=== PATIENT | female | born 1995 | race Caucasian/White ===

== ENCOUNTER 2017-05-10 11:43 | Emergency (ER) | payer OTHER ==
[~2017-05-10] VITALS: Ht 157.5 cm; Wt 81.8 kg
[~2017-05-10 11:43] MED LIST: IBU800 M1 PO; NORCO 325 MG-51 TAB PO; PEPCID 20MG TAB20 MG PO; PRENATAL1 TA3 PO
[2017-05-10 12:21] LABS: BASO % 0.3 % (0.0-2.0); EOS # 0.1 (0.0-0.7); EOS % 0.6 % (0-4.0); GRAN # 5.5 (1.4-6.5); GRAN % 69.3 % (42.2-75.2); HEMOGLOBIN 12.1 g/dl (12.5-16.0); LYMPH # 1.5 (1.2-3.4); LYMPH % 18.5 % (20.0-51.0); MEAN CELL VOLUME 93 fl (80.0-100.0); MEAN CORPUSCULAR HEMOGLOBIN 32 pg (27.0-31.0); MEAN CORPUSCULAR HGB CONC 34 g/dl (33.0-37.0); MEAN PLATELET VOLUME 9.8 fl (7.4-10.4); MONO # 0.8 (0.1-0.6); MONO % 10.4 % (1.7-9.3); PLATELET COUNT 215 K/mm3 (130-400); RED BLOOD COUNT 3.79 M/mm3 (4.10-5.30); REDCELL DISTRIBUTION WIDTH-CV 12.3 % (11.5-14.5); WHITE BLOOD COUNT 7.9 K/mm3 (4.8-10.8)
[2017-05-10 12:28] LABS: HEMATOCRIT 35.3 % (37.0-47.0)
[2017-05-10 12:32] LABS: ADJUSTED CALCIUM 9.1 mg/dL (8.4-10.2); ALANINE AMINOTRANSFERASE 19 U/L (9-52); ALBUMIN 3.7 gm/dL (3.5-5.0); ALKALINE PHOSPHATASE 116 U/L (50-136); ANION GAP 12 mmol/L (7-16); BILIRUBIN,TOTAL 0.5 mg/dL (0.0-1.0); BLOOD UREA NITROGEN 9 mg/dL (7-17); CALCIUM 8.9 mg/dL (8.4-10.2); CARBON DIOXIDE 19 mmol/L (22-30); CHLORIDE 104 mmol/L (98-107); CREATININE, serum 0.42 mg/dL (0.52-1.25); GLUCOSE 79 mg/dL (74-106); POTASSIUM 4.1 mmol/L (3.4-5.0); SODIUM 136 mmol/L (137-145); TOTAL PROTEIN 7.1 gm/dL (6.4-8.2)
[2017-05-10 12:43] LABS: B-TYPE NATRIURETIC PEPTIDE 22 pg/mL (0-125)
[2017-05-10 12:48] LABS: TROPONIN-I < 0.012 ng/mL (0.000-0.034)
[2017-05-10] MEDS ORDERED: OMNICEF 300MG300 MG PO (14:46)
[2017-05-10 15:02] VITALS: TEMP 98.3
[2017-05-10 16:16] VITALS: BP 115/73; PULSE 99
== END 2017-05-10 16:16 | disposition home or self-care (01) ==
LOC: COL.ER 11:43
PROVIDERS: Emergency Medicine
DX: O99.513 Diseases of the respiratory system complicating pregnancy, third trimester (principal); J18.1 Lobar pneumonia, unspecified organism; Z3A.28 28 weeks gestation of pregnancy
CPT/HCPCS: J0696; J7030; Q9967

== ENCOUNTER 2017-05-13 12:18 | Emergency (ER) | payer OTHER ==
[~2017-05-13] VITALS: Ht 157.5 cm; Wt 81.8 kg
[~2017-05-13 12:18] MED LIST changes: +OMNICEF 300MG300 MG PO
[2017-05-13 12:55] LABS: HEMOGLOBIN 12.2 g/dl (12.5-16.0); MEAN CELL VOLUME 92 fl (80.0-100.0); MEAN CORPUSCULAR HEMOGLOBIN 32 pg (27.0-31.0); MEAN CORPUSCULAR HGB CONC 35 g/dl (33.0-37.0); MEAN PLATELET VOLUME 9.9 fl (7.4-10.4); PLATELET COUNT 230 K/mm3 (130-400); WHITE BLOOD COUNT 8.2 K/mm3 (4.8-10.8)
[2017-05-13 12:56] LABS: HEMATOCRIT 34.9 % (37.0-47.0)
[2017-05-13 12:57] LABS: ADD PATHOLOGY DIFF REVIEW NO
[2017-05-13 13:01] LABS: PH 5 (5-8); URINE APPEARANCE Hazy; URINE BACTERIA None Seen /hpf; URINE BILIRUBIN Negative (NEGATIVE); URINE BLOOD Negative (NEGATIVE); URINE COLOR Amber; URINE GLUCOSE 1+ (NEGATIVE); URINE KETONE Negative (NEGATIVE); URINE RBC 0-2 /hpf
[2017-05-13 13:07] LABS: ADJUSTED CALCIUM 9.4 mg/dL (8.4-10.2); ALBUMIN 3.6 gm/dL (3.5-5.0); BILIRUBIN,TOTAL 0.5 mg/dL (0.0-1.0); CALCIUM 9.1 mg/dL (8.4-10.2); CREATININE, serum 0.49 mg/dL (0.52-1.25); POTASSIUM 3.8 mmol/L (3.4-5.0)
[2017-05-13 13:22] LABS: BAND 11 % (0-10); NEUTROPHILS 73 % (42.0-75.2); PLATELET ESTIMATE NORMAL (NORMAL); TOTAL CELLS COUNTED 100
[2017-05-13 15:19] LABS: ARTERIAL BLOOD GAS HCO3 20.5 meq/L (22-26); ARTERIAL BLOOD GAS PO2 86.8 mmHg (80-100); ARTERIAL BLOOD GAS pH 7.44 (7.35-7.45)
[2017-05-13 15:20] LABS: ALLEN TEST YES; ALLENS TEST RESULT PASS; ARTERIAL BLD GAS O2 SATURATION 95.6 % (92-100); ARTERIAL BLD GAS TCO2 CT 21.4; ARTERIAL BLOOD GAS BASE EXCESS -2.8 (-2-2); ATS? YES
[2017-05-13 15:39] VITALS: BP 112/74; PULSE 117; TEMP 97.5
== END 2017-05-13 15:44 | disposition home or self-care (01) ==
LOC: COL.ER 12:18
PROVIDERS: Family Medicine
DX: O99.513 Diseases of the respiratory system complicating pregnancy, third trimester (principal); J18.9 Pneumonia, unspecified organism; O99.283 Endocrine, nutritional and metabolic diseases complicating pregnancy, third trimester; E86.0 Dehydration; Z3A.29 29 weeks gestation of pregnancy
CPT/HCPCS: J2405; J7030; J7120

== ENCOUNTER 2017-05-19 10:25 | Outpatient (CLI) | payer OTHER ==
[~2017-05-19] VITALS: Ht 157.5 cm; Wt 80.0 kg
[2017-05-19 10:39] VITALS: BP 110/66; PULSE 84; TEMP 97.8
[2017-05-19] MEDS ORDERED: TYLENOL 500MG500 MG (10:45)
[2017-05-19 11:59] LABS: PH 5 (5-8); SQUAMOUS EPITHELIAL 0-2 /hpf; URINE APPEARANCE Hazy; URINE BACTERIA None Seen /hpf; URINE BILIRUBIN Positive (NEGATIVE); URINE BLOOD Negative (NEGATIVE); URINE COLOR Amber; URINE GLUCOSE Negative (NEGATIVE); URINE KETONE 2+ (NEGATIVE); URINE UROBILINOGEN >=4.0 mg/dL (NEGATIVE)
[2017-05-19 12:30] VITALS: BP 98/61; PULSE 75
[2017-05-19 12:51] LABS: HEMOGLOBIN 12.4 g/dl (12.5-16.0); MEAN CELL VOLUME 92 fl (80.0-100.0); MEAN CORPUSCULAR HEMOGLOBIN 32 pg (27.0-31.0); MEAN CORPUSCULAR HGB CONC 35 g/dl (33.0-37.0); MEAN PLATELET VOLUME 9.6 fl (7.4-10.4); PLATELET COUNT 342 K/mm3 (130-400); RED BLOOD COUNT 3.89 M/mm3 (4.10-5.30); REDCELL DISTRIBUTION WIDTH-CV 11.9 % (11.5-14.5); WHITE BLOOD COUNT 9.2 K/mm3 (4.8-10.8)
[2017-05-19 12:56] LABS: HEMATOCRIT 35.6 % (37.0-47.0)
[2017-05-19 12:57] LABS: ADD PATHOLOGY DIFF REVIEW NO
[2017-05-19 13:00] VITALS: BP 106/68; PULSE 78
[2017-05-19 13:01] LABS: ADJUSTED CALCIUM 9.2 mg/dL (8.4-10.2); ALBUMIN 3.6 gm/dL (3.5-5.0); BILIRUBIN,TOTAL 1.4 mg/dL (0.0-1.0); CALCIUM 8.9 mg/dL (8.4-10.2); CREATININE, serum 0.52 mg/dL (0.52-1.25); TOTAL PROTEIN 7.3 gm/dL (6.4-8.2)
[2017-05-19 13:10] LABS: BAND 30 % (0-10); EOSINOPHIL 1 % (0-4); NEUTROPHILS 46 % (42.0-75.2); TOTAL CELLS COUNTED 100
[2017-05-19 13:30] VITALS: BP 107/67; PULSE 82
[2017-05-19 13:45] VITALS: BP 113/73; PULSE 118
[2017-05-19 14:00] VITALS: BP 106/64; PULSE 84
== END 2017-05-19 14:25 | disposition home or self-care (01) ==
LOC: LDRO 10:25 → LDR 10:32 → LDRO 14:25
PROVIDERS: Student in an Organized Health Care Education/Training Program
DX: O26.873 Cervical shortening, third trimester (principal); O46.93 Antepartum hemorrhage, unspecified, third trimester; Z3A.31 31 weeks gestation of pregnancy
CPT/HCPCS: OP; J0290; J0702; J3475; J7120

== ENCOUNTER 2017-05-24 18:54 | Outpatient (CLI) | payer OTHER ==
[~2017-05-24] VITALS: Ht 157.5 cm; Wt 81.4 kg
[~2017-05-24 18:54] MED LIST changes: +TYLENOL 500MG500 MG
[2017-05-24 19:20] VITALS: BP 110/75; PULSE 106; TEMP 97.8
[2017-05-24 19:50] VITALS: BP 108/72; PULSE 106; TEMP 97.8
[2017-05-24 20:00] VITALS: BP 112/70; PULSE 97
== END 2017-05-24 21:02 | disposition critical access hospital (66) ==
LOC: LDRO 18:54
DX: O99.89 Other specified diseases and conditions complicating pregnancy, childbirth and the puerperium (principal); R10.9 Unspecified abdominal pain; Z3A.30 30 weeks gestation of pregnancy

== ENCOUNTER 2017-11-17 09:59 | Day surgery (SDC) | payer OTHER ==
[~2017-11-17] VITALS: Ht 157.5 cm; Wt 82.3 kg
[2017-11-17 10:15] VITALS: BP 121/74; PULSE 93; TEMP 98.1
[2017-11-17 11:24] VITALS: BP 116/82; PULSE 91; TEMP 97.9
[2017-11-17 11:45] VITALS: BP 105/63; PULSE 82
[2017-11-17 12:00] VITALS: BP 97/73; PULSE 83
[2017-11-17 12:15] VITALS: BP 94/66; PULSE 80
== END 2017-11-17 12:57 | disposition home or self-care (01) ==
LOC: SDCO 09:59
DX: K92.1 Melena (principal); K64.0 First degree hemorrhoids; F41.9 Anxiety disorder, unspecified
CPT/HCPCS: OP; J2250; J2405; J3010; J7030

== ENCOUNTER → 2018-04-13 | Outpatient (CLI) | payer OTHER | LOC: COL.RAD 09:45 | DX: K76.0 Fatty (change of) liver, not elsewhere classified (principal) ==

== ENCOUNTER → 2021-04-19 | Outpatient (CLI) | payer BC, MEDICAID | LOC: COL.RAD 07:48 | DX: R10.11 Right upper quadrant pain (principal); R74.01 Elevation of levels of liver transaminase levels ==

== ENCOUNTER → 2022-03-17 | Outpatient (CLI) | payer BC, MEDICAID | LOC: COL.RAD 09:34 | DX: D35.2 Benign neoplasm of pituitary gland (principal) | CPT/HCPCS: A9575 ==

== ENCOUNTER 2024-09-25 18:09 | Emergency (ER) | payer BC, MEDICAID ==
[~2024-09-25] VITALS: Ht 160 cm; Wt 71.4 kg
[2024-09-25 18:25] VITALS: TEMP 98.4
[2024-09-25 19:29] VITALS: BP 115/73; PULSE 86
== END 2024-09-25 19:32 | disposition home or self-care (01) ==
LOC: COL.ER 18:09
DX: O9A.211 Injury, poisoning and certain other consequences of external causes complicating pregnancy, first trimester (principal); S93.402A Sprain of unspecified ligament of left ankle, initial encounter; Z3A.11 11 weeks gestation of pregnancy; Z87.891 Personal history of nicotine dependence; X50.9XXA Other and unspecified overexertion or strenuous movements or postures, initial encounter